=== PATIENT | female | born 1975 | race Caucasian/White ===

== ENCOUNTER 2017-06-28 11:23 | Inpatient (IN) | payer MEDICAID ==
[~2017-06-28] VITALS: Ht 144.8 cm; Wt 82.9 kg
[~2017-06-28 11:23] MED LIST: ASCO500C15 PO; CARV-50 PO; CHOL10002 PO; DOCU-28 PO; FURO20TA4 PO; HYDR-565 PO; IPRA3AMP IH; LISI2.5T89 PO; MAGN400C PO; MAGN400O6 PO; METH2.5T PO; MONT10TA24 PO; MYCO500T PO; OMEP-271 PO; SPIR25TA PO
[2017-06-28 13:39] VITALS: BP 154/85
[2017-06-28] MEDS ORDERED: acetaminophen 325mg tablet PO PRN (13:40)
[2017-06-28] MEDS ORDERED: magnesium Cl slow-release 64mg tablet PO PRN (13:40)
[2017-06-28] MEDS ORDERED: magnesium 4gm in 100ml NS 100 ML IV PRN (13:40)
[2017-06-28] MEDS ORDERED: potassium Cl 20 mEq SR tablet PO PRN ×2 (13:40)
[2017-06-28] MEDS ORDERED: potassium Cl 40MEQ/NS 500ml 500 ML IV PRN ×2 (13:40)
[2017-06-28] MEDS ORDERED: HYDROcodone/acetaminophen 10/325mg tab PO PRN (13:40)
[2017-06-28] MEDS ORDERED: bisacodyl 10mg suppository rectal RC PRN (13:40)
[2017-06-28] MEDS ORDERED: magnesium 2GM in 50ml NS 50 ML IV PRN (13:40)
[2017-06-28] MEDS ORDERED: mag hydrox/Alum hydrox/simeth 30ml oral suspension PO PRN (13:40)
[2017-06-28] MEDS ORDERED: HYDROcodone/acetaminophen 5mg/325mg tablet PO PRN (13:40)
[2017-06-28] MEDS ORDERED: ondansetron/PF 4mg/2ml inj IV PRN (13:40)
[2017-06-28] MEDS ORDERED: magnesium hydroxide 30ml (MOM) UD suspension PO PRN ×2 (13:40→13:50)
[2017-06-28] MEDS: aspirin 325mg tablet, delayed-release (Ecotrin) PO SCH ×2 (13:50→14:43)
[2017-06-28] MEDS ORDERED: nitroGLYCERIN 0.4mg SUBLingual tab SL PRN (14:05)
[2017-06-28 14:41] LABS: BASOPHILS % (AUTO) 0.6 % (0-1); EOSINOPHILS # (AUTO) 0.1 X10'3 (0-0.9); HEMATOCRIT 38.5 % (35.0-45.0); HEMOGLOBIN 13.4 g/dl (12.0-16.0); LYMPHOCYTES # (AUTO) 1.8 X10'3 (1.1-4.8); LYMPHOCYTES % (AUTO) 24.7 % (21-51); MEAN CORPUSCULAR HEMOGLOBIN 27.9 PG (27.0-31.0); MEAN CORPUSCULAR HGB CONC 34.9 % (33.0-36.5); MEAN PLATELET VOLUME 7.8 FL (7.4-10.4); MONOCYTES # (AUTO) 0.3 X10'3 (0-0.9); MONOCYTES % (AUTO) 4.9 % (2-12); NEUTROPHILS # (AUTO) 4.9 X10'3 (1.8-7.7); NEUTROPHILS % (AUTO) 67.8 % (42-75); PLATELET COUNT 297 X10'3 (140-440); RED BLOOD COUNT 4.81 X10'6 (4.20-5.60); RED CELL DISTRIBUTION WIDTH 13.4 % (11.5-14.5); WHITE BLOOD COUNT 7.1 X10'3 (4.5-11.0)
[2017-06-28 14:43] LABS: PARTIAL THROMBOPLASTIN TIME 57 SECONDS (22-32); PROTHROMBIN TIME 10.5 SECONDS (9.0-12.0)
[2017-06-28] MEDS: carvedilol 6.25mg tablet PO SCH ×2 (14:43→20:23)
[2017-06-28] MEDS: normal saline 1000ml 1,000 ML IV SCH (14:43)
[2017-06-28] MEDS: pantoprazole 40 MG vial IV SCH (14:44)
[2017-06-28 14:48] LABS: TROPONIN I < 0.04 NG/ML (0.0-0.05)
[2017-06-28 14:53] LABS: ALANINE AMINOTRANSFERASE 23 U/L (12-78); ALBUMIN 3.4 G/DL (3.4-5.0); ALBUMIN/GLOBULIN RATIO 0.8 (1.1-1.5); ALKALINE PHOSPHATASE 81 IU/L (46-116); ANION GAP 6 (8-16); ASPARTATE AMINO TRANSFERASE 20 U/L (10-37); BILIRUBIN,TOTAL 0.6 MG/DL (0.1-1.0); BLOOD UREA NITROGEN 10 MG/DL (7-18); BUN/CREATININE RATIO 14.3 (6.6-38.0); CALCIUM 8.7 MG/DL (8.5-10.1); CHLORIDE 102 MMOL/L (99-107); GLUCOSE 111 MG/DL (70-104); POTASSIUM 3.5 MMOL/L (3.5-5.1); SODIUM 135 MMOL/L (135-145); TOTAL CARBON DIOXIDE 26.7 MMOL/L (24-32); TOTAL PROTEIN 7.6 G/DL (6.4-8.2); eGFR > 90 ML/MIN
[2017-06-28] MEDS: ipratropium/albuterol 3ml nebule NEB SCH ×2 (15:00→19:07)
[2017-06-28 15:01] LABS: ETHANOL < 0.010 GM/DL (0.0-0.010)
[2017-06-28 15:15] LABS: HCG SERUM QL NEGATIVE
[2017-06-28] MEDS: methylPREDNISolone sod succ 125mg/2ml vial IV SCH (15:58)
[2017-06-28] MEDS ORDERED: POTA10TA19 PO (16:14)
[2017-06-28] MEDS ORDERED: PRED5TAB PO (16:16)
[2017-06-28 17:00] VITALS: BP 132/84
[2017-06-28 19:00] VITALS: BP 128/71
[2017-06-28] MEDS: docusate sod 100mg capsule PO SCH (20:22)
[2017-06-28] MEDS: furosemide 20MG tablet PO SCH (20:23)
[2017-06-28] MEDS: heparin 10,000 units/1 ML INJ IV PRN (20:47)
[2017-06-28] MEDS ORDERED: montelukast 10mg tablet PO SCH (21:00)
[2017-06-28 23:00] VITALS: BP 125/64
[2017-06-29] VITALS (14 sets, daily range): BP systolic 106–143; BP diastolic 44–75
[2017-06-29] MEDS: methylPREDNISolone sod succ 125mg/2ml vial IV SCH ×2 (00:13→07:19)
[2017-06-29] MEDS: normal saline 1000ml 1,000 ML IV SCH ×2 (01:45→14:38)
[2017-06-29 02:57] LABS: BASOPHILS % (AUTO) 0 % (0-1); EOSINOPHILS # (AUTO) 0.1 X10'3 (0-0.9); EOSINOPHILS % (AUTO) 0.9 % (0-6); HEMATOCRIT 37.4 % (35.0-45.0); LYMPHOCYTES # (AUTO) 0.4 X10'3 (1.1-4.8); LYMPHOCYTES % (AUTO) 5.7 % (21-51); MEAN CORPUSCULAR HEMOGLOBIN 27.8 PG (27.0-31.0); MEAN CORPUSCULAR HGB CONC 34.7 % (33.0-36.5); MEAN CORPUSCULAR VOLUME 80.1 FL (78-98); MEAN PLATELET VOLUME 7.7 FL (7.4-10.4); MONOCYTES % (AUTO) 0.4 % (2-12); NEUTROPHILS # (AUTO) 7.2 X10'3 (1.8-7.7); PLATELET COUNT 286 X10'3 (140-440); RED BLOOD COUNT 4.67 X10'6 (4.20-5.60); RED CELL DISTRIBUTION WIDTH 14.4 % (11.5-14.5); WHITE BLOOD COUNT 7.7 X10'3 (4.5-11.0)
[2017-06-29 03:22] LABS: ALANINE AMINOTRANSFERASE 23 U/L (12-78); ALBUMIN 3.1 G/DL (3.4-5.0); ALBUMIN/GLOBULIN RATIO 0.7 (1.1-1.5); ALKALINE PHOSPHATASE 81 IU/L (46-116); ANION GAP 10 (8-16); ASPARTATE AMINO TRANSFERASE 19 U/L (10-37); BILIRUBIN,TOTAL 0.3 MG/DL (0.1-1.0); BLOOD UREA NITROGEN 13 MG/DL (7-18); BUN/CREATININE RATIO 16.3 (6.6-38.0); CALCIUM 8.8 MG/DL (8.5-10.1); CHLORIDE 104 MMOL/L (99-107); CHOL/HDL RATIO 2.2 (0.00-4.99); CHOLESTEROL 136 MG/DL (0-200); GLUCOSE 168 MG/DL (70-104); HDL CHOLESTEROL 63 MG/DL (35-60); LDL CHOLESTEROL 72 MG/DL (50-100); MAGNESIUM 1.9 MG/DL (1.5-2.4); POTASSIUM 4.3 MMOL/L (3.5-5.1); SODIUM 136 MMOL/L (135-145); TOTAL CARBON DIOXIDE 22.3 MMOL/L (24-32); TOTAL PROTEIN 7.3 G/DL (6.4-8.2); TRIGLYCERIDES 61 MG/DL (20-135); TROPONIN I < 0.04 NG/ML (0.0-0.05); eGFR 78 ML/MIN
[2017-06-29] MEDS: aspirin 325mg tablet, delayed-release (Ecotrin) PO SCH (07:15)
[2017-06-29] MEDS: carvedilol 6.25mg tablet PO SCH (07:15)
[2017-06-29] MEDS: furosemide 20MG tablet PO SCH (07:17)
[2017-06-29] MEDS: pantoprazole 40 MG vial IV SCH (07:18)
[2017-06-29] MEDS: ipratropium/albuterol 3ml nebule NEB SCH ×3 (07:26→15:22)
[2017-06-29] MEDS: docusate sod 100mg capsule PO SCH (08:00)
[2017-06-29] MEDS ORDERED: magnesium oxide 400mg tablet PO SCH (08:00)
[2017-06-29] MEDS ORDERED: ascorbic acid 500mg tablet PO SCH (08:00)
[2017-06-29] MEDS ORDERED: spironolactone 25 MG tablet PO SCH (08:00)
[2017-06-29] MEDS ORDERED: vitamin D (cholecalciferol) 1,000 unit tablet PO SCH (08:00)
[2017-06-29] MEDS ORDERED: lisinopril 2.5mg tablet PO SCH (08:00)
[2017-06-29] MEDS ORDERED: docusate sod 100mg capsule PO SCH (08:00)
[2017-06-29] MEDS ORDERED: K and/or MAG REPLACEMENT MC SCH (08:00)
[2017-06-29] MEDS ORDERED: nitroGLYCERIN 0.4mg SUBLingual tab SL PRN (08:15)
[2017-06-29] MEDS ORDERED: metoprolol tartrate 1mg/ml inj IV PRN (08:15)
[2017-06-29] MEDS ORDERED: regadenoson 0.4mg/5ml syringe IV ONE ×2 (08:15→14:07)
[2017-06-29] MEDS ORDERED: aminophylline 250mg/10ml inj. IV PRN (08:15)
[2017-06-29] MEDS: heparin 10,000 units/1 ML INJ IV PRN (10:21)
[2017-06-29] MEDS ORDERED: aminophylline inj. 10 ML IV ONE (14:07)
[2017-06-29] MEDS ORDERED: prednisone 10mg tablet PO SCH (15:55)
[2017-06-29] MEDS ORDERED: PANT40TA4 PO (16:29)
[2017-06-29] MEDS ORDERED: ENOX80DI10 SUBCUT (16:29)
[2017-06-29] MEDS ORDERED: WARF5TAB PO (16:32)
[2017-06-29] MEDS ORDERED: enoxaparin 80mg/0.8ml syringe SUBCUT SCH (20:00)
[2017-06-29] MEDS ORDERED: warfarin 10mg tablet PO ONE (21:00)
[2017-06-30] MEDS ORDERED: pantoprazole 40mg Tablet.DR PO SCH (07:30)
[2017-06-30] MEDS ORDERED: mycophenolate mofetil 250mg capsule PO SCH (08:00)
== END 2017-06-29 17:30 | disposition home or self-care (01) | DRG 241 ==
LOC: PCU 3S 12:40
PROVIDERS: ADMIT Internal Medicine; ATTEND Internal Medicine
PROC: 4A02XM4 Measurement of Cardiac Total Activity, External Approach (ICD-10-PCS; principal; 2017-06-29)
PROC: 3E073KZ Introduction of Other Diagnostic Substance into Coronary Artery, Percutaneous Approach (ICD-10-PCS; 2017-06-29)
DX: K29.70 Gastritis, unspecified, without bleeding (principal); D68.61 Antiphospholipid syndrome; I42.9 Cardiomyopathy, unspecified; I50.22 Chronic systolic (congestive) heart failure; I11.0 Hypertensive heart disease with heart failure; I27.20 Pulmonary hypertension, unspecified; K21.9 Gastro-esophageal reflux disease without esophagitis; M32.9 Systemic lupus erythematosus, unspecified; I45.6 Pre-excitation syndrome; F15.10 Other stimulant abuse, uncomplicated; I25.10 Atherosclerotic heart disease of native coronary artery without angina pectoris; Z98.62 Peripheral vascular angioplasty status; Z88.0 Allergy status to penicillin; Z88.2 Allergy status to sulfonamides; Z88.1 Allergy status to other antibiotic agents; Z88.8 Allergy status to other drugs, medicaments and biological substances; Z91.041 Radiographic dye allergy status; Z79.01 Long term (current) use of anticoagulants; Z79.82 Long term (current) use of aspirin; Z87.442 Personal history of urinary calculi; Z90.710 Acquired absence of both cervix and uterus; Z98.2 Presence of cerebrospinal fluid drainage device; Z90.49 Acquired absence of other specified parts of digestive tract
CPT/HCPCS: 36415; 71045; 78452; 80053; 80061; 80320; 82948; 83735; 84484; 84703; 85025; 85610; 85730; 87070; 93005; 93017; 93308; 94640; 94760; A9500; C9113; J0280; J1644; J2930; J7030; J7512; J7517; J8610